=== PATIENT | male | born 1960 | race Two or more races ===

== ENCOUNTER 2025-07-29 07:29 | Outpatient (CLI) | payer OTHER ==
[2025-07-29 09:32] LABS: Estimated GFR - POC 74.0
[2025-07-29] MEDS ORDERED: Iopamidol 300 61% 100 ML VIAL FS ONE (12:28)
== END 2025-07-29 07:30 | disposition home or self-care (01) ==
LOC: CSHCT 07:29
PROVIDERS: ATTEND Internal Medicine Gastroenterology
DX: D50.9 Iron deficiency anemia, unspecified (principal); D12.6 Benign neoplasm of colon, unspecified; K22.2 Esophageal obstruction; E27.8 Other specified disorders of adrenal gland; N28.1 Cyst of kidney, acquired; K63.9 Disease of intestine, unspecified
CPT/HCPCS: 74178; 82565; Q9967